=== PATIENT | female | born 1980 | race African-American/Black ===

== ENCOUNTER 2017-02-21 19:17 | Emergency (ER) | payer MEDICAID, OTHER ==
[~2017-02-21] VITALS: Ht 162.6 cm; Wt 78.0 kg
[2017-02-21] MEDS ORDERED: SODIUM CHLORIDE 0.9% 1,000 ML IV SCH (19:35)
[2017-02-21] MEDS ORDERED: EPINEPHRINE 1:1000 1 MG/ML AMP ONE (19:41)
[2017-02-21] MEDS ORDERED: FAMOTIDINE 20MG/2ML VIAL IV ONE (19:45)
[2017-02-21] MEDS ORDERED: DIPHENHYDRAMINE 50MG/ML VIAL IV ONE (19:45)
[2017-02-21] MEDS ORDERED: METHYLPREDNISOLONE SOD SUCC 125 MG/2 ML VIAL IV ONE (19:45)
[2017-02-21] MEDS ORDERED: IPRATROPIUM BROMIDE (0.02%) 0.5MG/2.5ML NEB HHN STA (19:45)
[2017-02-21] MEDS ORDERED: ALBUTEROL (0.083%) 2.5MG/3ML NEB HHN STA (19:45)
[2017-02-21] MEDS ORDERED: EPINEPHRINE 1:1000 1 MG/ML AMP SUBCUT ONE (19:45)
[2017-02-21 20:35] LABS: BASOPHILS % 0.5 % (0.0-2.0); EOSINOPHILS % 3.4 % (0.0-5.0); HEMATOCRIT. 45.6 % (36.0-48.0); HEMOGLOBIN. 15.3 g/dL (12.0-16.0); LYMPHOCYTES % 61.4 % (20.0-50.0); MEAN CORPUSCULAR HEMOGLOBIN 33.1 pg (28.0-32.0); MEAN CORPUSCULAR VOLUME 98.5 fL (81.0-99.0); MONOCYTES % 7.4 % (2.0-8.0); NEUTROPHILS % 27.3 % (40.0-76.0); PLATELET 232 x1000/uL (130-400); RED BLOOD CELL COUNT 4.64 mill/uL (4.2-5.4); RED CELL DISTRIBUTION WIDTH 13.5 % (11.6-14.6)
[2017-02-21 20:38] LABS: CARBON DIOXIDE 23 mEq/L (21-32); CHLORIDE 108 mEq/L (98-107); ETHANOL BLOOD < 10 mg/dL
[2017-02-21 20:42] LABS: TROPONIN I < 0.02 ng/mL (0.00-0.04)
[2017-02-21 20:44] LABS: HCG SCREEN NEGATIVE
[2017-02-21 22:20] VITALS: BP 126/66
== END 2017-02-21 23:08 | disposition home or self-care (01) ==
LOC: ER 19:34
DX: T78.2XXA Anaphylactic shock, unspecified, initial encounter (principal); Y92.89 Other specified places as the place of occurrence of the external cause; Z91.013 Allergy to seafood
CPT/HCPCS: 36415; 71010; 80053; 84484; 84703; 85025; 85610; 94640; 96361; 96372; 96374; 96375; 99291; G0482; J0171; J1200; J2930; J3490; J7611; Z7610

== ENCOUNTER 2021-11-25 21:56 | Emergency (ER) | payer MEDICAID ==
[~2021-11-25] VITALS: Ht 167.6 cm; Wt 84.0 kg
[2021-11-25 22:03] VITALS: BP 128/78
== END 2021-11-26 02:47 | disposition left against medical advice (07) ==
LOC: ER 21:56
DX: Z53.21 Procedure and treatment not carried out due to patient leaving prior to being seen by health care provider (principal)